=== PATIENT | male | born 1980 | race Caucasian/White ===

== ENCOUNTER 2018-02-20 03:59 | Emergency (ER) | payer OTHER ==
[~2018-02-20] VITALS: Ht 180.3 cm; Wt 83.9 kg
[2018-02-20] MEDS ORDERED: ZOFRAN ODT4 MG PO (04:47)
[2018-02-20 07:29] VITALS: BP 109/72
== END 2018-02-20 07:29 | disposition home or self-care (01) ==
LOC: ER 03:59
DX: S09.8XXA Other specified injuries of head, initial encounter (principal); R11.2 Nausea with vomiting, unspecified; F10.129 Alcohol abuse with intoxication, unspecified; Z88.0 Allergy status to penicillin; E78.5 Hyperlipidemia, unspecified; V49.59XA Passenger injured in collision with other motor vehicles in traffic accident, initial encounter; Y93.89 Activity, other specified; Y92.89 Other specified places as the place of occurrence of the external cause; Y99.8 Other external cause status